=== PATIENT | female | born 1970 | race Two or more races ===

== ENCOUNTER → 2024-10-06 | Outpatient (CLI) | payer BC, SELFPAY ==
[2024-10-09 06:21] LABS: Fecal Globin Result NOT DETECTED (NOT DETECTED)
== END | disposition home or self-care (01) ==
LOC: SLDO 10:58
PROVIDERS: PCP Family Medicine; Referring Provider Family Medicine; Visit Provider Family Medicine
DX: Z12.11 Encounter for screening for malignant neoplasm of colon (principal); Z12.12 Encounter for screening for malignant neoplasm of rectum
CPT/HCPCS: 82274; G0328

== ENCOUNTER → 2025-01-27 | Outpatient (CLI) | payer BC, SELFPAY ==
--- NOTE | 2025-01-27 08:33 | XR_ITS ---
Examination: Foot, left, 3 views Technique: AP, oblique, lateral views foot, 3 views Date and time of exam: 11/29/2024 0745 hrs. Indications: Left foot pain beginning one month ago. Findings: Mild to moderate bunion deformity Moderate osteoarthritis first metatarsophalangeal joint No fracture Small plantar posterior bony calcaneal spurs Impression: Mild to moderate bunion deformity Moderate osteoarthritis first metatarsophalangeal joint
== END | disposition home or self-care (01) ==
PROVIDERS: PCP Family Medicine; Referring Provider Family Medicine; Visit Provider Family Medicine
DX: M21.612 Bunion of left foot (principal); M19.072 Primary osteoarthritis, left ankle and foot
CPT/HCPCS: 73630

== ENCOUNTER → 2025-04-16 | Outpatient (CLI) | payer BC, SELFPAY ==
--- NOTE | 2025-04-16 08:35 | XR_ITS ---
Examination: Knee, left 3 views , 3 views Technique: Knee AP, lateral, oblique 3 views Date and time of exam: April 16, 2025 0836 hours Comparison February 04, 2024 INDICATIONS: Left knee pain beginning 2018 knee surgery 2020 FINDINGS: Moderate osteopenia Left knee medial hemiarthroplasty Satisfactory alignment Advanced osteoarthritis patellofemoral joint No fracture IMPRESSION: Advanced osteoarthritis patellofemoral joint
== END | disposition home or self-care (01) ==
PROVIDERS: PCP Family Medicine; Referring Provider Orthopaedic Surgery; Visit Provider Orthopaedic Surgery
DX: M17.12 Unilateral primary osteoarthritis, left knee (principal)
CPT/HCPCS: 73562

== ENCOUNTER 2025-05-14 12:39 | Observation (INO) | payer BC, SELFPAY ==
--- NOTE | 2025-05-13 09:35 | EKG_ITS ---
[facility] Test Date: 2025-05-13 Pat Name: JED CEJA Department: Room: - Gender: Female Side Guider: BRIANNA : 1970 Requested By: Wing Adkins Order Number: [id number] Reading MD: Wing Adkins Measurements Intervals [place] Rate: 50 P: 29 WV: 137 QRS: 34 QRSD: 82 T: 63 QT: 424 QTc: 388 Interpretive Statements SINUS BRADYCARDIA MODERATE ST DEPRESSION [0.05+ mV ST DEPRESSION] Compared to ECG 04/30/2024 12:00:27 No significant changes /store/S0/[id number].pdf
[2025-05-13 09:45] VITALS: BMI 32.3
[2025-05-13 10:25] LABS: Basophils % (Auto) 1 % (0-2.5); Eosinophils # (Auto) 0.2 Thou/mm3 (0.0-0.5); Eosinophils % (Auto) 4 % (0-10); Hematocrit 38.5 % (36.0-46.0); Hemoglobin 13.7 g/dL (12.0-16.0); Immature Granulocytes % (Auto) 0 % (0-0); Immature Granulocytes Auto 0.02 Thou/mm3 (0.00-0.00); Lymphocytes % (Auto) 47 % (10-50); Mean Corpuscular HGB Conc 35.6 g/dl (31.0-37.0); Mean Corpuscular Hemoglobin 29.3 pg (25.0-35.0); Mean Corpuscular Volume 82 fL (80-100); Monocytes # (Auto) 0.5 Thou/mm3 (0.0-0.8); Monocytes % (Auto) 7 % (0-12); Neutrophils # (Auto) 2.6 Thou/mm3 (1.8-7.7); Neutrophils % (Auto) 41 % (37-80); Nucleated Red Blood Cell % 0 /100 WBC (0); Platelet Count 275 Thou/mm3 (140-440); RDW Standard Deviation 38.7 fL (36.4-46.3); Red Blood Count 4.68 Miln/mm3 (4.00-5.20); White Blood Count 6.4 Thou/mm3 (3.6-11.0)
[2025-05-13 10:40] LABS: INR 1.1 (0.9-1.3); Partial Thromboplastin Time 26.9 Seconds (22.0-36.0); Prothrombin Time 12.1 Seconds (9.0-12.2)
[2025-05-13 10:48] LABS: Alanine Aminotransferase 27 U/L (10-49); Albumin, Serum 4.4 gm/dL (3.5-5.0); Albumin/Globulin Ratio 1.6 (1.2-2.2); Alkaline Phosphatase 85 U/L (46-116); Anion Gap 8 (7-16); Aspartate Amino Transferase 26 U/L (0-34); BUN/Creatinine Ratio 16 Ratio (12-20); Bilirubin,Total 0.6 mg/dL (0.3-1.2); Blood Urea Nitrogen 13 mg/dL (9-23); Calcium 9.3 mg/dL (8.3-10.6); Calcium (Corrected) 9.3 mg/dL (8.5-10.1); Carbon Dioxide 28.1 mMol/L (20.0-31.0); Chloride 106 mMol/L (98-107); Creatinine (Component) 0.8 mg/dL (0.6-1.3); Globulin 2.7 gm/dL (2.3-3.5); Glucose 125 mg/dL (74-106); Osmolality,Calculated 284 (275-295); Potassium 4.1 mMol/L (3.4-5.1); Sodium 142 mMol/L (136-145); Total Protein 7.1 gm/dL (5.7-8.2); eGFR > 60 See Note
--- NOTE | 2025-05-13 13:38 | ESHP_ITS ---
RE: JED CEJA : 1970 DATE OF ADMISSION: 05/14/2025 HISTORY OF PRESENT ILLNESS: The patient has got pain in the left knee joint. The patient underwent left total knee replacement a few years back by Dr. Berkowitz. However, the pain in the left knee joint is quite bad. Range of motion is restricted. Intensity of the pain is about 8-9/10. The patient is unable to sleep. It is affecting her quality of life and activities of daily living. The patient wants something to be done about it. X-ray was obtained, which revealed unicompartment replacement of the left knee joint. Medial compartment was replaced. PAST MEDICAL HISTORY: The patient has a history of heartburn. No history of diabetes mellitus, high blood pressure, asthma, seizure, chest pain, myocardial infarction, or bleeding disorder. PAST SURGICAL HISTORY: Status post right total knee replacement done in 04/2024 by dc. The patient is also status post left partial knee replacement done a few years back by Dr. Berkowitz. DRUG HISTORY: The patient is taking; 1. Amitriptyline. 2. Levocetirizine. 3. Meclizine. 4. Pantoprazole. 5. Pregabalin. ALLERGIES: NIL KNOWN. FAMILY HISTORY AND SOCIAL HISTORY: The patient denies smoking and drinking. PHYSICAL EXAMINATION: GENERAL: Normal built lady. VITAL SIGNS: Pulse 62 per minute, blood pressure is 140/76. NECK: Soft. Supple. No masses felt. Trachea is centrally placed. CARDIOVASCULAR SYSTEM: First and second heart sounds normal. No murmur heard. LUNGS: Bilateral vesicular breath sounds. CHEST: Clear. ABDOMEN: Soft. No masses felt. Bowel sounds present. EXTREMITIES: Left knee examination revealed a scar neo on the frontal aspect. There is tenderness along the medial joint line. Active range of motion is 5-90 degrees of flexion. No further range of motion possible. The patient walks with a limp. Neurovascularly, it is intact. DIAGNOSTIC DATA: X-ray was obtained on 04/16/2025, which revealed unicompartmental knee replacement. ASSESSMENT AND PLAN: Since the patient is symptomatic, therefore, removal of the implant along with placement of the left total knee replacement was discussed and advised. Risks with anesthesia was explained and that includes, but not limited to reaction to anesthetic agents, cardiac arrest and rarely it might be fatal. Risk with operation includes infection and if that happens, the patient may need further surgical procedure. Other risks include delayed healing, wound dehiscence, etc. No guarantee is given regarding outcome of the procedure and/or relief of symptoms. Accordingly, surgery is booked for 05/14/2025. Appropriate lab work is being done. DT: 11:58:09 TT: 13:36:00 Ref: [id number] - TID: [id number]
[2025-05-14] VITALS (15 sets, daily range): BP systolic 115–145; BP diastolic 50–73; PULSE 56–77; RESP 12–18; TEMP 36.2–36.9; O2SAT 95–100; BMI 32.1
[2025-05-14] MEDS: RINGERS LACTATED 1000 ML 1,000 ML 20 ML IV (06:36)
--- NOTE | 2025-05-14 07:45 | SUR.PREOP ---
Patient expressed gratitude for prayer before their procedure.
--- NOTE | 2025-05-14 10:38 | XR_ITS ---
Examination: Knee, left, 3 views Technique: Knee AP, lateral, oblique 3 views Date and time of exam: May 14, 2025 1101 hours INDICATIONS: Status post knee replacement LUNGS: Total left hip arthroplasty Satisfactory alignment Prominent osteopenia IMPRESSION: Total left knee arthroplasty with satisfactory alignment
--- NOTE | 2025-05-14 10:39 | ESOP_ITS ---
Date of Procedure 05/14/25 Pre Op Diagnosis 1. Is status post unicompartmental left knee arthroplasty 2 severe osteoarthritic changes Post Op Diagnosis Same Procedure 1. Removal of the unicompartmental knee prosthesis. Left knee 2. Left total knee replacement. Kerri persona implant Femur size 5 narrow Tibial baseplate size D Polyethylene size 14 mm ultracongruent. Patella size 26 mm Findings Refer dictation Procedure Description The patient was given a [spinal] anesthesia. Once satisfactory anesthesia was achieved a tourniquet was placed on right upper thigh. Intravenous antibiotics was given at the time of anesthesia. The patient was thoroughly prepped and draped. After using Esmarch the tourniquet pressure was raised to 350 mmHg. A skin incision was made 2 inches proximal to the upper pole of patella going as far down as up to the medial aspect of the tibial tuberosity. The skin was raised as a flap on the site. The bleeding vessels were electrocoagulated as and when encountered. The quadriceps tendon, medial border of the patella and the patellar tendon along the medial aspect of the tibial tuberosity was incised and reflected. The patellar tendon was reflected as much as needed to sergio the patella. The soft tissue from the upper medial border of the tibia was reflected to correct her genu varum deformity. The knee joint was flexed. The anterior cruciate ligament, and lateral meniscus were excised. The tibial implant was placed on the medial side. With the help of a small osteotome the space between the baseplate of the tibial implant and tibial bone was widened. Slowly and gradually the metallic implant was removed. Before that the plastic implant was removed. Following that the femur implant was removed with the help of osteotome and [place]. Drill hole was made to the inferior surface of the femur. Following that a sword was placed. A 4?? of abduction was already put into it. Following that a cutting block for the inferior cut of the femur was placed and nicely secured with the pins. The swat was removed. The inferior cut of the femur was made and after that the cutting block was removed. Following that a sizer was placed. A decision was made to use size [5] femur implant. 2 drill holes each in 3?? of external rotation were made. The sizer was removed. Size [5] cutting block was placed. Following that anterior, posterior, anterior chamfer and posterior chamfer cuts were made. The cutting block was removed. The knee joint was extended and a 10 mm trial plastic was removed and the intended level of the tibial cut was marked. The knee joint was flexed. With the help of double-pronged the tibia was displaced anteriorly. An extramedullary jig for the cutting block placement of the tibia was placed. The mechanical axis of the zig was parallel to the mechanical axis of the tibia. Following that the tibial cutting block was placed at the desired level and was secured nicely with the help of pins. Following that the tibial cut was made. In this case was posterior cruciate ligament was saved. The cutting block was removed. The spacer was placed and a decision was made to use size [14] polyethylene. The sizing of the tibial baseplate was done and the decision was made to use size [D] tibial baseplate. Following that size [5] trial femur implant was placed in lateralized position and size [D] tibial tibial baseplate along with size [14] congruent plastic was placed in knee joint was flexed and extended quite a few times and tibial baseplate was allowed to sit wherever it wanted to. The markings were made for the tibial baseplate. 2 drill holes were made for the inferior surface of the femur trial implant. The trial implant was removed and tibial baseplate was placed again with the help of pins. The collar was placed and superior hole was drilled. Following that a fin cut was made. The patella was reamed with [26] mm diameter reamer. [12] mm thickness was left. A collar was placed and 3 drill holes were made. All the trial implant was placed and patellar tracking was checked and found to be good. Lateral release was done at this point. The wound was irrigated with antibiotic solution every 4-5 minutes. Now the power lavage antibiotic solution was used. The knee joint was flexed. The bone were made dry. The cement was mixed. With the help of cement the tibial baseplate was mounted. The excess cement was removed. The femur implant was placed and trial plastic was placed and knee joint was extended. Patella was also mounted with the help of cementing. Excess cement was removed. Osteophytes from the patella was removed at this time. Once the cement was set the tourniquet pressure was released. The bleeding vessels were electrocoagulated. The trial plastic was removed and 14 mm ultra high molecular weight ultracongruent polyethylene was placed. Closure The quadriceps tendon was closed with the help of 1 strata fix in continuous fashion. The medial collateral ligament was also repaired with 1 strata fix. Subcu tissue and fat layer was closed with 1 strata fix in continuous fashion. The skin was closed with a subcuticular placement. The wound was cleaned with hydrogen proximal solution and a sterile dressing was applied. Patient tolerated procedure very well. Estimated blood loss [25] mL. Prognosis in this case is good. This was taken to the recovery room in good condition. Anesthesia GETA and other Pathology / specimen None Estimated Blood Loss 25 Surgeon Wing Olmos MD Surgical Staff Operation Date: 05/14/25 07:30 Case Staff Anesthesiologist: Roman Jones RNindustrial sales engineer: Mnoica Bruner
--- NOTE | 2025-05-14 10:49 | SUR.PHASEI ---
1049 Patient arrived to recovery resting comfortably in [facility], on oxygen 4L via nasal cannula, breathing unlabored, vital signs stable, denies pain, dressing intact to left knee; prineo, fluffs, abd, bias roll, silk tape, no bleeding noted, denies nausea, bilateral dorsalis pedis pulses pulses present when palpated, patient has good circulation to left lower extremity: skin color normal for patient and warm to touch, report received from Dr. Jones and Marie LAY
--- NOTE | 2025-05-14 11:13 | SUR.PHASEI ---
1113 XRAY complete per MD order
--- NOTE | 2025-05-14 12:27 | SUR.PHASEII ---
1227 Notified patient daughter on update of patient
--- NOTE | 2025-05-14 13:57 | SUR.PHASEII ---
1343 Report given to Annie RN, patient meets discharge criteria from recovery, awake and talking with staff, on oxygen 4L via nasal cannula, breathing unlabored, vital signs stable, denies pain, eating ice chips; tolerating well, dressing intact; no bleeding noted, purewick in place, patient shared she has the urge to urinate however unable to at the time, denies pain to bladder, information given to Annie to continue to monitor patient 1357 Patient transported via bed to room 379 without incident, patients daughter accompanied transport, patient resting comfortably in bed with call light in reach with her daughter at bedside, when this technical publications writer left patients room.
--- NOTE | 2025-05-14 14:00 | PC.NURSE ---
Patient arrived to unit at this time. Patient denies pain. Pedal pulses are strong and palpable bilaterally. Surgical dressing intact and in place without any signs of drainage or bleeding. Vital signs stable, see flow sheet.
--- NOTE | 2025-05-14 15:39 | PD.ANESPROG ---
Documentation for date of: 05/14/25 ANESTHESIA NOTE: Patient had GETA and L femoral nerve block for revision L TKA this morning. She did well intra-op and in PACU. Roman Jones MD Anesthesia Progress Note Progress Note Most recent Vital Signs: Last Vital Signs Temp 98.2 F 05/14/25 13:04 Pulse 56 L 05/14/25 13:34 Resp 12 05/14/25 13:34 BP 131/50 H 05/14/25 13:34 Pulse Ox 100 05/14/25 11:49 O2 Flow Rate 2 05/14/25 11:49
[2025-05-14] MEDS: ceFAZolin/D5W 1 GM IVPB 1 GM/50 ML BAG IV ×2 (16:24→23:37)
--- NOTE | 2025-05-14 16:49 | PC.NURSE ---
Patient continues to report severe abdominal pain. Abdomen is distended and firm. Dr. Ball was notified of ongoing symptoms.
[2025-05-14] MEDS: ONDANSETRON INJ 2 MG/ML INJ 2 ML 4 MG IVP (19:39)
[2025-05-14] MEDS: MORPHINE SULF INJ 10 MG/ML VIAL 4 MG IVP (20:32)
[2025-05-15] VITALS (7 sets, daily range): BP systolic 121–140; BP diastolic 63–75; PULSE 60–72; RESP 17–18; TEMP 36.1–36.7; O2SAT 96–98
[2025-05-15] MEDS: MORPHINE SULF INJ 10 MG/ML VIAL 4 MG IVP ×2 (06:00→10:13)
[2025-05-15 06:48] LABS: Basophils % (Auto) 0 % (0-2.5); Eosinophils % (Auto) 0 % (0-10); Immature Granulocytes % (Auto) 1 % (0-0); Immature Granulocytes Auto 0.08 Thou/mm3 (0.00-0.00); Lymphocytes # (Auto) 2.2 Thou/mm3 (1.0-4.8); Lymphocytes % (Auto) 15 % (10-50); Mean Corpuscular HGB Conc 35.3 g/dl (31.0-37.0); Mean Corpuscular Volume 85 fL (80-100); Monocytes # (Auto) 1.1 Thou/mm3 (0.0-0.8); Monocytes % (Auto) 8 % (0-12); Neutrophils # (Auto) 10.8 Thou/mm3 (1.8-7.7); Neutrophils % (Auto) 76 % (37-80); Nucleated Red Blood Cell % 0 /100 WBC (0); Platelet Count 236 Thou/mm3 (140-440); RDW Standard Deviation 40.6 fL (36.4-46.3); White Blood Count 14.1 Thou/mm3 (3.6-11.0)
[2025-05-15] MEDS: ONDANSETRON INJ 2 MG/ML INJ 2 ML 4 MG IVP ×2 (10:13→16:42)
--- NOTE | 2025-05-15 13:00 | PC.PT ---
05/15/2025 PT eval performed and outpatient or Home Health PT recommended based on patient performance and dizziness w/ standing/ walking placing patient at fall risk once home
--- NOTE | 2025-05-15 15:08 | PC.NURSE ---
Spoke with Dr. Puga regarding patients plan of care. Endorsed to MD episode with physical therapist where during ambulation patient became pale, clammy and reported dizziness and nausea. HR of 56 and o2 sats of 99%. Per MD ok for patient to stay one more night and be re-evaled by PT tomorrow. Then if does well may discharge to home with follow up in office on Saturday.
--- NOTE | 2025-05-15 16:53 | PC.NURSE ---
Pt c/o increased anxiety and feeling short of breath, states has had similar episodes in the past and requesting anxiety medication. Dr. Puga notified. New orders received to consult to hospitalist. Order placed and Dr. Roman notified of new consultation.
[2025-05-15] MEDS: LORazepam 2 MG/ML VIAL 1 MG IVP (17:54)
--- NOTE | 2025-05-15 18:27 | PD.RESCONSUL ---
HPI Data of Consult Requesting Physician: Wing Olmos MD Admitting Provider: Wing Olmos MD Attending Provider: Wing Olmos MD Primary Care Provider: Deni Villafana MD Consult Narrative Reason for consult: Anxiety History of present illness: This patient is 55 yr female with PMH of anxiety and GERD who underwent Left total knee replacement by orthopedics Dr. Puga. Procedure completed on 05/14/2025 with no major complications. Hospitalist team consulted for management of anxiety and mild shortness of breath. Vitals reviewed showing mild hypertension 139/68, saturating 96% on nasal cannula, RR 17. At bedside patient was eating dinner comfortably. Stated that she was having some anxiety after the operation and occasionally does take amitriptyline at home. Will resume home dosage amitriptyline and IV lorazepam 1 mg x 1 as needed for anxiety. Continue to monitor and adjust medications as needed for patient to be comfortable. cc:: cc: Wing Olmos MD Review of Systems Review of Systems Systems Reviewed: All systems reviewed, normal except as documented Exam Vital Signs Temp Pulse Resp BP Pulse Ox O2 Del Method O2 Flow Rate 97.7 F 66 17 139/68 H 96 Nasal Cannula 2 05/15/25 16:00 05/15/25 16:00 05/15/25 16:00 05/15/25 16:00 05/15/25 16:05/15/25 16:00 05/15/25 16:00 Narrative Exam General:Middle age female. No acute distress, cooperative, eating dinner HEENT: NCAT, No JVD noted. Mucosa moist. Pupils are equal and reactive to light bilaterally Cardiovascular: Normal S1 and S2. Regular rate and rhythm. Respiratory: Lungs are clear to auscultation bilaterally. No wheezing or crackles heard. Abdomen: Soft, nontender, not distended, normal bowel sounds. Skin: Warm to touch, dry, no rashes noted Musculoskeletal: No gross injuries. Able to move all 4 extremities. No pitting edema. LLE wrapped in danica bandage. She was able to move post op leg. Neuro: Alert and oriented x3. No focal neuro deficits. Psych: Normal affect and mood Results Labs 05/15/25 05:52 05/13/25 10:10 Labs: Short CBC 05/15/25 Range/Units 05:52 WBC 14.1 H D (3.6-11.0) Thou/mm3 Hgb 12.0 (12.0-16.0) g/dL Hct 34.0 L (36.0-46.0) % Plt Count 236 D (140-440) Thou/mm3 Quality Measures Quality Measures none Medications Home Medications and Allergies Home Medications ?Medication ?Instructions ?Recorded ?Confirmed ?Type levocetirizine 5 mg tablet 5 mg PO HS 05/10/20 05/13/25 History montelukast 10 mg tablet 10 mg PO HS 05/10/20 05/13/25 History celecoxib 200 mg capsule 200 mg PO ONCE PM 05/02/23 05/13/25 History pregabalin 100 mg capsule 100 mg PO BID 05/02/23 05/13/25 History pantoprazole 40 mg tablet,delayed 40 mg PO DAILY 05/13/25 05/13/25 History release amitriptyline 25 mg tablet 25 mg PO QDAY 05/15/25 05/16/25 History Allergies Allergy/AdvReac Type Severity Reaction Status Date / Time No Known Allergies Allergy Verified 05/14/25 10:17 Visit Medications Hydrocodone Bitart/Acetaminophen (Hydrocodone/Apap 5/325 Tablet) 1 tab PO Q6HR PRN PRN Reason: PAIN Stop: 05/20/25 15:23 Amitriptyline HCl (Amitriptyline Hcl 25 Mg Tablet) 25 mg PO HS [facility] Stop: 06/14/25 20:59 Ondansetron HCl (Ondansetron Inj 2 Mg/Ml Inj 2 Ml) 4 mg IVP Q6HR PRN PRN Reason: NAUSEA OR VOMITING Stop: 06/13/25 15:39 Last Admin: 05/15/25 16:42 Dose: 4 mg Discontinued Medications Amitriptyline HCl (Amitriptyline Hcl 25 Mg Tablet) 25 mg PO DAILY@1800 [facility] Stop: 06/14/25 17:59 Sodium Chloride 3,000 ml/ (Gentamicin Sulfate 120 mg) 0 ml IRRIG X1 ONE Stop: 05/14/25 07:31 Fentanyl Citrate (Fentanyl Cit Inj 50 Mcg/Ml Amp 2ml) 50 mcg IVP Q5MIN PRN PRN Reason: PAIN SCALE 4-10(Mod-Sev Stop: 05/14/25 11:52 Hydralazine HCl (Hydralazine Inj 20 Mg/Ml Vial) 5 mg IV Q20MIN PRN PRN Reason: SEE COMMENTS Stop: 05/14/25 11:52 Hydromorphone HCl (Hydromorphone Inj 2 Mg/Ml Vial) 0.5 mg IVP Q10MIN PRN PRN Reason: PAIN SCALE 4-10(Mod-Sev Stop: 05/14/25 11:52 Cefazolin Sodium (Ancef 2gm Ivpb) 2 gm in 100 mls @ 100 mls/hr IV X1 ONE Stop: 05/14/25 06:59 Lactated Ringer's (Lactated Ringers) 1,000 mls @ 20 mls/hr IV .Q24H ONE Stop: 05/15/25 05:59 Last Admin: 05/14/25 06:36 Dose: 20 mls/hr Promethazine HCl 12.5 mg/ (Sodium Chloride) 50.5 mls @ 2.5 mls/min IV X1 PRN PRN Reason: NAUSEA OR VOMITING Stop: 05/14/25 11:52 Cefazolin Sodium/Dextrose (Ancef Ivpb) 1 gm in 50 mls @ 50 mls/hr IV Q8H MARY Stop: 05/15/25 00:39 Last Admin: 05/14/25 23:37 Dose: 50 mls/hr Lorazepam (Lorazepam 2 Mg/Ml Vial) 1 mg IVP X1 ONE Stop: 05/15/25 17:39 Last Admin: 05/15/25 17:54 Dose: 1 mg Meperidine HCl (Meperidine Inj 50 Mg/Ml Vial) 12.5 mg IVP Q5M PRN PRN Reason: SHIVERING Stop: 05/14/25 11:52 Metoclopramide HCl (Metoclopramide Inj 5 Mg/Ml Vial 2 Ml) 10 mg IVP X1 PRN; Protocol PRN Reason: NAUSEA OR VOMITING Stop: 05/14/25 11:53 Midazolam HCl (Midazolam Inj 1 Mg/Ml Vial 2 Ml) 1 mg IVP Q5MIN PRN PRN Reason: ANXIETY Stop: 05/14/25 11:52 Morphine Sulfate (Morphine Sulf Inj 10 Mg/Ml Vial) 4 mg IVP Q4HR PRN PRN Reason: PAIN Stop: 05/19/25 15:39 Last Admin: 05/15/25 10:13 Dose: 4 mg Ondansetron HCl (Ondansetron Inj 2 Mg/Ml Inj 2 Ml) 4 mg IVP X1 PRN PRN Reason: NAUSEA OR VOMITING Stop: 05/14/25 11:52 Assessment & Plan Plan This patient is 55 yr female with PMH of anxiety and GERD who underwent Left total knee replacement by orthopedics Dr. Puga. Procedure completed on 05/14/2025 with no major complications. Hospitalist team consulted for management of anxiety and mild shortness of breath. #Anxiety Vitals reviewed showing mild hypertension 139/68, saturating 96% on nasal cannula, RR 17. Stated that she was having some anxiety after the operation and occasionally does take amitriptyline at home. --Resume home dose of amitriptyline 25 mg at bedtime ?IV lorazepam 1 mg x 1 -monitor symptoms #Post op left total knee replacement -managed by orthopedics team #GERD -pantoprazole 40mg daily Thank you for the opportunity to assist in this patient's care. The patient's management plan was discussed with my attending physician Dr. Roman. Felicia Reese, PGY-1 Attending Provider Attestation/Addendum I have examined the patient, reviewed labs and imaging findings, discussed the case with the resident(s), and reviewed entered orders. I agree with the plan of care as outlined in this note, with these additional summaries/recommendations: Patient seen at bedside. She is postoperative day #1 status post left total knee replacement. She currently reports her pain is controlled. Hospitalist team consulted for anxiety. We will give low-dose Ativan x 1 and monitor for improvement. Leukocytosis present and most likely reactive, recommend repeating hematology panel in AM. Continue [place] and physical therapy. Patient in agreement with the plan. Please see residents note for additional details and management. Thank you for allowing us to participate in this patients care. We will continue to follow the patient with you. Dr. Jessie MD
[2025-05-15] MEDS: HYDROcodone/APAP 5/325 TABLET 1 TAB PO (19:33)
[2025-05-15] MEDS: AMITRIPTYLINE HCL 25 MG TABLET PO (20:28)
[2025-05-16] MEDS: HYDROcodone/APAP 5/325 TABLET 1 TAB PO (02:31)
[2025-05-16 04:00] VITALS: BP 124/64; PULSE 67; RESP 19; TEMP 36.1; O2SAT 96
[2025-05-16 08:00] VITALS: BP 125/69; PULSE 68; RESP 16; TEMP 36.9; O2SAT 96
[2025-05-16 09:59] LABS: Basophils % (Auto) 0 % (0-2.5); Eosinophils % (Auto) 0 % (0-10); Hematocrit 34.1 % (36.0-46.0); Hemoglobin 11.8 g/dL (12.0-16.0); Immature Granulocytes % (Auto) 1 % (0-0); Immature Granulocytes Auto 0.06 Thou/mm3 (0.00-0.00); Lymphocytes % (Auto) 18 % (10-50); Mean Corpuscular HGB Conc 34.6 g/dl (31.0-37.0); Mean Corpuscular Hemoglobin 29.1 pg (25.0-35.0); Mean Corpuscular Volume 84 fL (80-100); Monocytes # (Auto) 0.9 Thou/mm3 (0.0-0.8); Monocytes % (Auto) 8 % (0-12); Neutrophils # (Auto) 8.4 Thou/mm3 (1.8-7.7); Neutrophils % (Auto) 74 % (37-80); Nucleated Red Blood Cell % 0 /100 WBC (0); Platelet Count 192 Thou/mm3 (140-440); RDW Standard Deviation 40.4 fL (36.4-46.3); Red Blood Count 4.05 Miln/mm3 (4.00-5.20); White Blood Count 11.4 Thou/mm3 (3.6-11.0)
--- NOTE | 2025-05-16 10:00 | ESPR_ITS ---
Documentation for date of: 05/17/25 Subjective Subjective Interval history: Patient examined at bedside. No reported events overnight. Today she is felling well with no complaints of anxiety or SOB after resuming home medication amitriptylline. She appears comfortable, tolerating diet well, and working with PT. Patient is stable. No need for further management by hositalist team at this time. Will sign off case. Exam Vital Signs Temp Pulse Resp BP Pulse Ox O2 Del Method O2 Flow Rate 98.4 F 77 15 108/69 97 Room Air 2 05/16/25 12:00 05/16/25 12:05/16/25 12:05/16/25 12:05/16/25 12:05/16/25 12:05/16/25 04:00 Narrative Exam General:Middle age female. No acute distress, cooperative, eating dinner HEENT: NCAT, No JVD noted. Mucosa moist. Pupils are equal and reactive to light bilaterally Cardiovascular: Normal S1 and S2. Regular rate and rhythm. Respiratory: Lungs are clear to auscultation bilaterally. No wheezing or crackles heard. Abdomen: Soft, nontender, not distended, normal bowel sounds. Skin: Warm to touch, dry, no rashes noted Musculoskeletal: No gross injuries. Able to move all 4 extremities. No pitting edema. LLE wrapped in danica bandage. She was able to move post op leg. Neuro: Alert and oriented x3. No focal neuro deficits. Psych: Normal affect and mood Objective Labs 05/16/25 09:25 05/16/25 09:25 Labs: Laboratory Results - last 24 hr 05/13/25 05/16/25 10:10 09:25 WBC 11.4 H RBC 4.05 Hgb 11.8 L Hct 34.1 L MCV 84 MCH 29.1 MCHC 34.6 RDW Std Deviation 40.4 Plt Count 192 D Neut % (Auto) 74 Lymph % (Auto) 18 [place] % (Auto) 8 Eos % (Auto) 0 Baso % (Auto) 0 Neut # (Auto) 8.4 H Lymph # (Auto) 2.0 [place] # (Auto) 0.9 H Eos # (Auto) 0.0 Baso # (Auto) 0.0 Immature Gran # (Auto) 0.06 H Absolute Nucleated RBC 0.00 Immature Gran % 1 H Nucleated RBC % 0 Sodium 138 Potassium 3.3 L D Chloride 104 Carbon Dioxide 28.1 Anion Gap 6 L BUN 9 Creatinine 0.8 Estim Creat Clear Calc 79.7 eGFR > 60 BUN/Creatinine Ratio 11 L Glucose 181 H D Calculated Osmolality 279 Calcium 8.9 Corrected Calcium 8.9 Total Bilirubin 0.9 AST 22 ALT 17 Alkaline Phosphatase 67 D Total Protein 6.6 Albumin 4.0 Globulin 2.6 Albumin/Globulin Ratio 1.5 Crossmatch See Detail Quality Measures Quality Measures none Assessment & Plan Plan This patient is 55 yr female with PMH of anxiety and GERD who underwent Left total knee replacement by orthopedics Dr. Puga. Procedure completed on 05/14/2025 with no major complications. Hospitalist team consulted for management of anxiety and mild shortness of breath. #Anxiety Vitals reviewed showing mild hypertension 139/68, saturating 96% on nasal cannula, RR 17. Stated that she was having some anxiety after the operation and occasionally does take amitriptyline at home. --Resume home dose of amitriptyline 25 mg at bedtime ?IV lorazepam 1 mg x 1 -monitor symptoms #Post op left total knee replacement -managed by orthopedics team #GERD -pantoprazole 40mg daily Thank you for the opportunity to assist in this patient's care. The patient's management plan was discussed with my attending physician Dr. Roman. Felicia Reese, PGY-1 Attending Provider Attestation/Addendum I have examined the patient, reviewed labs and imaging findings, discussed the case with the resident(s), and reviewed entered orders. I agree with the plan of care as outlined in this note. Dr. Jessie MD
[2025-05-16 10:34] LABS: Alanine Aminotransferase 17 U/L (10-49); Albumin/Globulin Ratio 1.5 (1.2-2.2); Alkaline Phosphatase 67 U/L (46-116); Anion Gap 6 (7-16); Aspartate Amino Transferase 22 U/L (0-34); BUN/Creatinine Ratio 11 Ratio (12-20); Bilirubin,Total 0.9 mg/dL (0.3-1.2); Blood Urea Nitrogen 9 mg/dL (9-23); Calcium 8.9 mg/dL (8.3-10.6); Calcium (Corrected) 8.9 mg/dL (8.5-10.1); Carbon Dioxide 28.1 mMol/L (20.0-31.0); Chloride 104 mMol/L (98-107); Creatinine (Component) 0.8 mg/dL (0.6-1.3); Estimated Creatinine Clearance 79.7 mL/min (>60); Globulin 2.6 gm/dL (2.3-3.5); Glucose 181 mg/dL (74-106); Osmolality,Calculated 279 (275-295); Potassium 3.3 mMol/L (3.4-5.1); Sodium 138 mMol/L (136-145); Total Protein 6.6 gm/dL (5.7-8.2); eGFR > 60 See Note
[2025-05-16 10:45] VITALS: PULSE 77; RESP 16; O2SAT 94
[2025-05-16 12:00] VITALS: BP 108/69; PULSE 77; RESP 15; TEMP 36.9; O2SAT 97
--- NOTE | 2025-05-16 15:04 | PC.SS ---
Per rounding note, Dr Dangelo consult is recommended. Pt will need initial completed.
== END 2025-05-16 15:30 | disposition home or self-care (01) ==
LOC: S3SX 14:18
PROVIDERS: Anesthesiology; Student in an Organized Health Care Education/Training Program; Admitting Provider Orthopaedic Surgery; PCP Family Medicine; Referring Provider Orthopaedic Surgery; Visit Provider Orthopaedic Surgery
PROC: (CPT 27447; principal; 2025-05-14 07:30)
DX: M17.12 Unilateral primary osteoarthritis, left knee (principal); M23.92 Unspecified internal derangement of left knee; K21.9 Gastro-esophageal reflux disease without esophagitis; I10 Essential (primary) hypertension; F41.9 Anxiety disorder, unspecified; Z01.810 Encounter for preprocedural cardiovascular examination
CPT/HCPCS: 27447; 27488; 36415; 73562; 80053; 85025; 85610; 85730; 86850; 86900; 86901; 86923; 87081; 93005; 96365; 96375; 96376; 97161; A4217; C1776; G0378; J0131; J0689; J0690; J1100; J1171; J2060; J2250; J2270; J2371; J2405; J2704; J2795; J3010; J3490; J7120; A9270

== ENCOUNTER → 2025-07-26 | Outpatient (CLI) | payer BC, SELFPAY ==
[2025-07-26 08:51] LABS: Alanine Aminotransferase 37 U/L (10-49); Albumin, Serum 4.6 gm/dL (3.5-5.0); Alkaline Phosphatase 102 U/L (46-116); Aspartate Amino Transferase 42 U/L (0-34); Bilirubin,Direct 0.1 mg/dL (0.0-0.3); Bilirubin,Total 0.5 mg/dL (0.3-1.2); Cardiac Risk Estimate 5.6 RATIO (3.7-5.6); Cholesterol 174 mg/dL (132-200); HDL Cholesterol 31 mg/dL (40-60); LDL Cholesterol,Calculated 112 mg/dL (0-130); Total Protein 7.4 gm/dL (5.7-8.2); Triglycerides 154 mg/dL (30-150)
== END | disposition home or self-care (01) ==
LOC: COPL 07:49
PROVIDERS: PCP Family Medicine; Referring Provider Family Medicine; Visit Provider Family Medicine
DX: E78.5 Hyperlipidemia, unspecified (principal)
CPT/HCPCS: 36415; 80061; 80076

== ENCOUNTER → 2025-08-17 | Outpatient (CLI) | payer BC, SELFPAY ==
--- NOTE | 2025-08-17 16:45 | XR_ITS ---
Examination: Screening digital mammography, bilateral Computer aided detection 3-D breast Tomosynthesis, bilateral Date and time of exam: August 17, 2025, 1650 hours, compared to mammograms dating to August 25, 2019 Indication: Screening Technique: Nonmagnified MLO, CC views of the breasts to been obtained, reconstructed from 3-D Tomosynthesis images. R2 computer aided detection program utilized for evaluation of suspicious masses and/or abnormal calcifications. 3-D Tomosynthesis images obtained. Findings: The breasts are heterogeneously dense, which may obscure small masses Stable nodule upper outer right breast Stable focal asymmetry upper left breast No interval suspicious masses Impression: BI-RADS category II: Benign Findings. Recommend 1 year follow-up mammogram.
== END | disposition home or self-care (01) ==
LOC: CDIM 15:59
PROVIDERS: Referring Provider Family Medicine; Visit Provider Family Medicine
DX: Z12.31 Encounter for screening mammogram for malignant neoplasm of breast (principal); R92.323 Mammographic fibroglandular density, bilateral breasts
CPT/HCPCS: 77063; 77067